=== PATIENT | male | born 1965 | race Caucasian/White ===

== ENCOUNTER 2024-08-16 08:31 | Day surgery (SDC) | payer OTHER ==
[2024-08-16] MEDS ORDERED: BUPIVACAINE 0.5 % PF 150 MG/30 ML VIAL ONE (08:32)
[2024-08-16] MEDS ORDERED: LIDOCAINE 1%-EPI 1:100,000 20 ML VIAL ONE (08:33)
[2024-08-16] MEDS ORDERED: FENTANYL PF 100MCG/2ML AMPUL ONE (09:12)
[2024-08-16] MEDS ORDERED: CLINDAMYCIN 900 MG/6 ML VIAL ONE (09:12)
[2024-08-16] MEDS ORDERED: ROCURONIUM BROMIDE 50 MG/5 ML ONE (09:13)
[2024-08-16] MEDS ORDERED: KETOROLAC TROMETHAMINE INJ 30 MG/ML VIAL IV PRN ×2 (11:30)
[2024-08-16] MEDS ORDERED: ONDANSETRON HCL/PF 4 MG/2 ML VIAL IVP PRN (11:30)
== END 2024-08-16 13:00 | disposition home or self-care (01) ==
LOC: DS 08:31
PROVIDERS: ATTEND Surgery
DX: K40.30 Unilateral inguinal hernia, with obstruction, without gangrene, not specified as recurrent (principal); E78.5 Hyperlipidemia, unspecified; Z86.2 Personal history of diseases of the blood and blood-forming organs and certain disorders involving the immune mechanism
CPT/HCPCS: 49507; 64425; 88302; J1885; J3490 ×5; J1100; J2704; J3010; J0330; J2405; J7030; C1781